=== PATIENT | female | born 1975 | race Asian ===

== ENCOUNTER → 2020-08-30 | Outpatient (REF) | payer BC ==
[2020-08-31 12:18] LABS: FREE T4 1.16 NG/DL (0.76-1.46); THYROID STIMULATING HORMONE < 0.005 uIU/ML (0.358-3.740)
[2020-08-31 12:21] LABS: THYROID PEROXIDASE ANTIBODY > 1300.0 U/ML (<60.0)
[2020-08-31 12:23] LABS: THYROGLOBULIN ANTIBODY > 500.0 U/ML (<60.0)
== END ==
LOC: M SFHCCLAY 15:14
PROVIDERS: ATTEND Nurse Practitioner Family
DX: E05.00 Thyrotoxicosis with diffuse goiter without thyrotoxic crisis or storm (principal)